=== PATIENT | female | born 2000 | race Caucasian/White ===

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

== ENCOUNTER 2019-04-01 01:17 | Emergency (ER) | payer BC, SELFPAY ==
[2019-04-01 01:18] VITALS: BP 111/71; PULSE 52; RESP 16; TEMP 37; O2SAT 100; BMI 24.1
[2019-04-01] MEDS: 0.9% Normal Saline 1,000 ML 150 ML IV (02:08)
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
[2019-04-01 02:22] LABS: Absolute Lymphocyte Count 2.62 X10^3/uL (0.83-4.51); Absolute Neutrophil Count 5.3 X10^3/uL (2.0-7.7); Basophil# 0.04 X10^3/uL; Basophil% 0.4 % (0-1); Eosinophil# 0.15 X10^3/uL; Eosinophils% 1.7 % (0-5); Hematocrit 34.5 % (37-47); Hemoglobin 11.5 g/dL (12.0-15.0); Lymphocyte # 2.62 X10^3/ul (4.0); Mean Corp Hgb Conc 33.3 g/dL (32-36); Mean Corpuscular Hgb 30.3 pg (27.0-32.0); Mean Platelet Vol. 9.7 fl (6.2-12.0); Monocyte# 0.86 X10^3/uL; Monocyte% 9.5 % (0-10); NRBC Flagged by Analyzer 0 % (0-5); Neutrophil # 5.32 X10^3/uL (2.7-7.7); Neutrophil % 59.1 % (47-70); Platelet Count 273 K/mm3 (150-450); RBC Distribution Width CV 11.4 % (11.6-14.6); RBC Distribution Width SD 37.8 fl (35.1-43.9); Red Blood Count 3.79 M/mm3 (4.2-5.4)
[2019-04-01 02:31] LABS: Anion Gap 8 (5-15); BUN 12 mg/dL (7-18); Calcium,Total 8.9 mg/dL (8.5-10.1); Chloride 108 mmol/L (98-107); Creatinine, Serum 0.86 mg/dL (0.55-1.02); EST Glomerular Filtration Rate 90 mL/min (>60); Est Glom Filt Rate - Afr Amer 109 mL/min (>60); Glucose 88 mg/dL (74-106); Internal QC Validated? YES +Cl - CLEAR BKGD; Potassium 3.5 mmol/L (3.5-5.1); Pregnancy, Serum, hCG Quali. NEGATIVE Negative; Sodium Level 139 mmol/L (136-145)
[2019-04-01 03:08] LABS: Vista UDS pH Range 5
[2019-04-01 03:17] VITALS: BP 103/60; PULSE 47; RESP 18; O2SAT 98
[2019-04-01 03:28] LABS: Amphetamine Urine VISTA NEGATIVE (<1000 ng/mL); Barbiturate Urine VISTA NEGATIVE (< 200 ng/mL); Benzodiazepine Urine VISTA NEGATIVE (< 200 ng/mL); Cocaine Urine VISTA NEGATIVE (< 300 ng/mL); Ecstacy Urine VISTA NEGATIVE (< 500 ng/mL); Methadone Urine VISTA NEGATIVE (< 300 ng/mL); PCP Urine VISTA NEGATIVE (< 25 ng/mL); THC Urine VISTA NEGATIVE (< 50 ng/mL)
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
--- NOTE | 2019-04-01 03:39 | ED.RN ---
THIS RN WENT TO DC PT. SHE WAS ON THE PHONE W/HER MOTHER REQUESTING A BLOOD ALCOHOL TEST. DR BURGOS AWARE
[2019-04-01 04:00] VITALS: BP 102/68; PULSE 62; RESP 16; O2SAT 97
== END 2019-04-01 04:05 | disposition home or self-care (01) ==
PROVIDERS: Emergency Provider Emergency Medicine
DX: T50.901A Poisoning by unspecified drugs, medicaments and biological substances, accidental (unintentional), initial encounter (principal); Y92.89 Other specified places as the place of occurrence of the external cause; G40.909 Epilepsy, unspecified, not intractable, without status epilepticus
CPT/HCPCS: 80048; 80307; 80320; 84703; 85025; 96360; 96361; 99285; J7030; A4216; G0480

== ENCOUNTER 2021-11-07 03:25 | Emergency (ER) | payer BC, SELFPAY ==
[2021-11-07 03:26] VITALS: BP 116/70; PULSE 71; RESP 17; TEMP 36.4; O2SAT 100; BMI 21.9
[2021-11-07 03:28] VITALS: BP 116/70; PULSE 61; RESP 15; RESP 17; TEMP 36.6; O2SAT 100; O2SAT 99
--- NOTE | 2021-11-07 03:37 | EDS_ITS ---
HPI History of Present Illness Chief Complaint: Complaint Detail of Chief Complaint: Hematuria, dysuria Informant: patient Onset/Context/Timing Onset: Today Current Severity: Mild Maximum Severity: Moderate Narrative Narrative: Patient states she woke up approximately half hour ago with dysuria and hematuria. The past couple days she thought she might be getting a UTI as she was having a slight amount of burning and seem to be going more frequently. No fever or chills. She has mild right lower back pain. She has had 2 UTIs within the past year. Last menstrual cycle was 20 days ago. [facility] Medical History Epilepsy Home Medications zonisamide 250 mg PO DAILY 04/01/19 [History Last Taken Unknown] fluoxetine [Prozac] 20 mg PO DAILY 11/07/21 [History Last Taken Unknown] norethindrone (contraceptive) [Jencycla] mg 11/07/21 [History Last Taken Unknown] phenazopyridine [Pyridium] 200 mg PO BID PRN PRN #6 tab 11/07/21 [Rx Last Taken Unknown] sulfamethoxazole-trimethoprim [Bactrim DS] 1 tab PO BID #6 tab 11/07/21 [Rx Last Taken Unknown] Allergy/AdvReac Type Severity Reaction Status Date / Time No Known Allergies Allergy Verified 11/07/21 03:30 Social History Smoking Status: Never smoker ROS ROS ED Constitutional Constitutional ED: Denies chills or fever(s) Eyes Eyes: Denies change in vision ENT ENT ED: Denies sore throat Cardiovascular Cardiovascular: Denies chest pain Respiratory/Chest Respiratory/Chest: Denies cough or dyspnea Gastrointestinal Gastrointestinal: Reports abdominal pain; Denies diarrhea, nausea or vomiting Genitourinary Genitourinary ED: Reports dysuria, hematuria and urinary frequency Musculoskeletal Musculoskeletal: Reports back pain Integumentary Denies rash Neurologic Neurologic: Denies headache(s) or weakness Allergic/Immunologic Allergic/Immunologic ED: Denies urticaria EXAM Physical Exam Const Vital Signs: 11/07/21 03:26 11/07/21 03:28 Temperature 97.5 F L 97.8 F Temperature Source Temporal Oral Pulse Rate 71 61 Respiratory Rate 17 15 Blood Pressure 116/70 116/70 Blood Pressure Mean 85 85 Pulse Ox 100 99 Oxygen Delivery Method Room Air Room Air Positive well nourished and well developed General Appearance ED: well developed HEENT Reports moist mucous membranes Eyes PERRL and EOMs intact bilaterally Neck supple Chest Wall inspection of chest normal and palpation of chest normal Resp normal respiratory effort and clear to auscultation bilaterally Cardio regular rate and regular rhythm GI Palpation: soft and tender suprapubic Back/Spine no CVA tenderness Back/Spine Narrative: Mild tenderness in the right lower lumbar paraspinals. Extremity normal to inspection Neuro oriented x3 Sensorium / Orientation: alert Psych mental status grossly normal Skin no rashes or lesions noted MDM MDM MDM Narrative Medical decision making narrative: Patient given Naprosyn and Pyridium. Urinalysis obtained. Lab Data Attestation: I reviewed the patient's lab results. Labs: Laboratory Results - last 24 hr 11/07/21 03:56 Urine Color Red Urine Clarity Turbid Urine pH 5.0 Ur Specific [place] 1.020 Urine Protein 500 H Urine Glucose (UA) Normal Urine Ketones Negative Urine Occult Blood 250 H Urine Nitrite Negative Urine Bilirubin Negative Urine Urobilinogen Normal Ur Leukocyte Esterase 500 H Urine RBC > 100 SEEN Urine WBC >100 SEEN Ur Squamous Epith Cells 0 SEEN Urine Bacteria 2+ Urine Mucus 0 SEEN Urine Test Negative Treatment and Re-Evaluation Narrative: Urinalysis does show significant infection with rhythm 100 white cells and 2+ bacteria. Urine test is negative. She will be treated with 3-day course of Bactrim, first dose given here. She will also be given Pyridium to help with pain. Discharge Plan Triage Chief Complaint: Complaint ED Provider: Steffany Wolfe Dx/Rx/DC Orders Clinical Impression: Cystitis Instructions: ED CYSTITIS Female Adult Prescriptions: New sulfamethoxazole-trimethoprim [Bactrim DS] 800-160 mg tablet 1 tab PO BID Qty: 6 RF: 0 phenazopyridine [Pyridium] 200 mg tablet 200 mg PO BID PRN PRN (Reason: Pain) Qty: 6 RF: 0 No Action zonisamide 50 MG capsule 250 mg PO DAILY RF: 0 norethindrone (contraceptive) [Jencycla] 0.35 mg tablet RF: 0 fluoxetine [Prozac] 20 mg Capsule 20 mg PO DAILY RF: 0 Primary Care Provider: Care Physician,No Primary Referrals: [facility] [[facility] PHYS[facility]] - 3-5 Days if not improving Care Physician,No Primary [Primary Care Provider] - Disposition Disposition: Home, Self Care
[2021-11-07 04:01] LABS: Mucous, Urine 0 SEEN /hpf (<or=2+); Squamous Epithelial Cells - UA 0 SEEN /hpf (5-10)
[2021-11-07] MEDS: Phenazopyridine 95 MG Tablet 190 MG PO (04:03)
[2021-11-07] MEDS: Naproxen 500 MG Tablet PO (04:03)
[2021-11-07 04:04] LABS: Color, Urine Red (Yellow); Glucose, Dipstick Normal (Normal); Ketone-Dipstick Negative (Negative); Leukocyte Esterase-Dipstick 500 /ul (Negative); Nitrite-Dipstick Negative (Negative); Occult Blood-Urine 250 /ul (Negative); Protein-Dipstick 500 mg/dl (Negative); Urine Bilirubin Dipstick Negative (Negative); Urine Clarity Turbid (Clear); Urine Urobilinogen Normal (Normal)
[2021-11-07 04:05] LABS: Internal QC Validated? YES +Cl - CLEAR BKGD; Pregnancy, Urine Negative Negative
[2021-11-07 04:35] LABS: Bacteria 2+ /hpf (None Seen); Red Blood Cells-Urine > 100 SEEN /hpf (0-5); White Blood Cells >100 SEEN /hpf (0-5)
[2021-11-07 04:57] VITALS: BP 115/82; PULSE 78; RESP 17; O2SAT 98
[2021-11-07] MEDS: Smz/Tmp Ds Tablet 1 TABLET PO (04:57)
== END 2021-11-07 04:58 | disposition home or self-care (01) ==
PROVIDERS: Emergency Provider Emergency Medicine; Visit Provider Emergency Medicine
DX: N30.91 Cystitis, unspecified with hematuria (principal); G40.909 Epilepsy, unspecified, not intractable, without status epilepticus
CPT/HCPCS: 81001; 81025; 99283